=== PATIENT | female | born 2000 | race Caucasian/White ===

== ENCOUNTER 2021-05-27 15:30 | Emergency (ER) | payer OTHER ==
[2021-05-27 15:43] VITALS: BP 113/77; PULSE 74; TEMP 98; BMI 25.2
[2021-05-27] MEDS ORDERED: morphine CARPU-JECT 4 MG/1 ML DISP.SYRIN IVPUSH ONE ×2 (16:49→20:32)
[2021-05-27] MEDS ORDERED: ONDANSETRON 4 MG/2 ML VIAL IVPUSH ONE (16:49)
[2021-05-27] MEDS ORDERED: SODIUM CHLORIDE 1,000 ML IV STA (16:49)
[2021-05-27] MEDS ORDERED: morphine SULFATE 4 MG/ML VIAL ONE ×2 (17:20→20:49)
[2021-05-27 17:52] LABS: BASO % 0.3 % (0-2.0); EOS % 0.4 % (0-4.5); HEMATOCRIT 43.7 % (32.4-45.2); HEMOGLOBIN 14.9 GM/dL (10.7-15.3); LYMPH % 23.8 % (8-40); MCH 29.8 pg (25.7-33.7); MCHC 34.2 g/dl (32.0-36.0); MEAN CELL VOLUME 86.9 fl (80-96); MONO % 6.2 % (3.8-10.2); NEUT % 69.3 % (42.8-82.8); PLATELET COUNT 244 10^3/uL (134-434); RBC 5.02 M/mm3 (3.60-5.2); RDW 13.8 % (11.6-15.6); WHITE BLOOD COUNT 8.2 K/mm3 (4.0-10.0)
[2021-05-27 17:59] LABS: EPI CELLS 32 /uL (0-25.1); HYALINE CASTS 3 /uL (0-3.1); PH,URINE 5.5 (5.0-8.0); URINE APPEARANCE CLOUDY; URINE BACTERIA 1524 /uL (0-1359); URINE BILIRUBIN 1+ (NEGATIVE); URINE COLOR DK YELLOW; URINE GLUCOSE (UA) NEGATIVE (NEGATIVE); URINE KETONE 2+ (NEGATIVE); URINE LEUK ESTERASE 2+ (NEGATIVE); URINE NITRITE NEGATIVE (NEGATIVE); URINE PROTEIN NEGATIVE (NEGATIVE); URINE RBC 11 /uL (0-23.9); URINE WBC 115 /uL (0-25.8)
[2021-05-27 18:00] LABS: HCG,QUALITATIVE URINE Negative
[2021-05-27 18:18] LABS: CALCIUM 9.9 mg/dL (8.5-10.1)
[2021-05-27 18:19] LABS: ALBUMIN 4.6 g/dl (3.4-5.0); BLOOD UREA NITROGEN 9.4 mg/dL (7-18)
[2021-05-27 18:22] LABS: CREATININE 0.7 mg/dL (0.55-1.3)
[2021-05-27 18:24] LABS: BILIRUBIN,TOTAL 4.1 mg/dL (0.2-1); TOT PROT 8.2 g/dl (6.4-8.2)
[2021-05-27] MEDS ORDERED: ACETAMINOPHEN INJECTION 100 ML IVPB ONE (20:58)
[2021-05-28] MEDS ORDERED: morphine SULFATE 4 MG/ML VIAL ONE (00:58)
[2021-05-29 12:07] LABS: SARS-CoV-2 NAA Not Detected (Not Detected)
== END 2021-05-28 03:09 | disposition short-term general hospital (02) ==
LOC: JER 15:30
PROC: 3E033NZ Introduction of Analgesics, Hypnotics, Sedatives into Peripheral Vein, Percutaneous Approach (ICD-10-PCS; principal; 2021-05-27)
PROC: 3E033GC Introduction of Other Therapeutic Substance into Peripheral Vein, Percutaneous Approach (ICD-10-PCS; 2021-05-27)
PROC: 3E0337Z Introduction of Electrolytic and Water Balance Substance into Peripheral Vein, Percutaneous Approach (ICD-10-PCS; 2021-05-27)
DX: K80.80 Other cholelithiasis without obstruction (principal)
CPT/HCPCS: 36415; 76705-TC; 80053; 81003; 83690; 84484; 84703; 85025; 87086; 93005; 93010; 99285-25; C9803; U0003; U0005

== ENCOUNTER 2022-12-10 18:05 | Emergency (ER) | payer OTHER ==
[2022-12-10 18:26] VITALS: BP 100/56; PULSE 83; RESP 18; TEMP 99; BMI 25.8
[2022-12-10] MEDS ORDERED: ACETAMINOPHEN 1000 MG/100 ML BAG IVPB ONE (18:51)
[2022-12-10] MEDS ORDERED: SODIUM CHLORIDE 0.9% 500 ML INFUS.BAG IV ONE (18:51)
[2022-12-10] MEDS ORDERED: MAG HYDROX/AL HYDROX/SIMETH -MYLANTA- ORAL SUSPENSION PO ONE (18:51)
[2022-12-10] MEDS ORDERED: ONDANSETRON 4 MG/2 ML VIAL IVPUSH ONE (18:51)
[2022-12-10] MEDS ORDERED: FAMOTIDINE 20 MG TABLET PO ONE (18:51)
[2022-12-10] MEDS ORDERED: ACETAMINOPHEN INJECTION 100 ML IVPB ONE (19:17)
[2022-12-10] MEDS ORDERED: FAMOTIDINE 20 MG TABLET ONE (19:17)
[2022-12-10] MEDS ORDERED: MAG HYDROX/AL HYDROX/SIMETH 30 ML UNIT-DOSE CUP ONE (19:18)
[2022-12-10] MEDS ORDERED: ONDANSETRON 4 MG/2 ML VIAL ONE (19:18)
[2022-12-10 19:26] LABS: BASO % 0.2 % (0-2.0); EOS % 0.1 % (0-4.5); HEMATOCRIT 43.8 % (32.4-45.2); HEMOGLOBIN 14.4 GM/dL (10.7-15.3); LYMPH % 19.7 % (8-40); MCH 28.5 pg (25.7-33.7); MEAN CELL VOLUME 86.4 fl (80-96); MEAN PLT VOLUME 7.9 fl (7.5-11.1); MONO % 5.5 % (3.8-10.2); NEUT % 74.5 % (42.8-82.8); PLATELET COUNT 276 10^3/uL (134-434); RBC 5.07 M/mm3 (3.60-5.2); RDW 13.2 % (11.6-15.6); WHITE BLOOD COUNT 10.6 K/mm3 (4.0-10.0)
[2022-12-10 19:37] LABS: ALBUMIN 4.1 g/dl (3.4-5.0); CALCIUM 8.9 mg/dL (8.5-10.1)
[2022-12-10 19:39] LABS: CREATININE 0.6 mg/dL (0.55-1.3)
[2022-12-10 19:41] LABS: BILIRUBIN,TOTAL 0.6 mg/dL (0.2-1); TOT PROT 7.4 g/dl (6.4-8.2)
== END 2022-12-10 21:01 | disposition home or self-care (01) ==
LOC: JER 18:05
PROC: 3E033NZ Introduction of Analgesics, Hypnotics, Sedatives into Peripheral Vein, Percutaneous Approach (ICD-10-PCS; principal; 2022-12-10)
PROC: 3E033GC Introduction of Other Therapeutic Substance into Peripheral Vein, Percutaneous Approach (ICD-10-PCS; 2022-12-10)
DX: R10.13 Epigastric pain (principal); R11.2 Nausea with vomiting, unspecified; R19.7 Diarrhea, unspecified; K29.00 Acute gastritis without bleeding
CPT/HCPCS: 36415; 76705-TC; 80053; 83690; 84703; 85025; 93005; 93010; 99285-25